=== PATIENT | male | born 2000 | race Caucasian/White ===

== ENCOUNTER 2020-04-27 21:17 | Emergency (ER) | payer OTHER, SELFPAY ==
--- NOTE | ~2020-04-27 | CT_ITS ---
EXAMINATION: CT brain wo con DATE: 04/27/2020 22:18 INDICATION: Unresponsive TECHNIQUE: Computed tomography (CT) of the head was performed without intravenous contrast. Sagittal and coronal reconstructions were performed. The mA was adjusted according to patient size. Iterative reconstruction technique was employed. The dose-length product was 605.33 mGy-cm. COMPARISON: None FINDINGS: 4.5 x 4.6 x 4.0 cm CSF attenuation cystic mass at the left middle cranial fossa and extending into th e suprasellar region. This exerts mass effect upon the adjacent brain. The left middle cerebral arter y however extends through the mass. No evident soft tissue component or calcifications. No acute intr acranial hemorrhage, acute infarction or abnormal extra axial fluid collection. Ventricles are normal and symmetric aside from the mild mass effect resulting from the cystic mass. Mild mucosal thickenin g in the bilateral ethmoid sinuses. Right mastoid effusion. IMPRESSION: 1. No acute intracranial process. 2. 4.6 cm cystic mass in the left middle cranial fossa extending to the suprasellar region most likel y an arachnoid cyst but would recommend further evaluation with pre and postcontrast MRI to exclude o ther cystic mass/neoplasm such as craniopharyngioma. Reviewed, dictated and finalized at location A. IMPRESSION: 1. No acute intracranial process. 2. 4.6 cm cystic mass in the left middle cranial fossa extending to the suprase llar region most likely an arachnoid cyst but would recommend further evaluatio n with pre and postcontrast MRI to exclude other cystic mass/neoplasm such as c raniopharyngioma.
[2020-04-27 21:17] VITALS: BP 138/63; PULSE 115; RESP 18; TEMP 37.8; O2SAT 98
--- NOTE | 2020-04-27 21:34 | ECG_ITS ---
Measurements Intervals [place] Rate: 119 P: 72 CO: 151 QRS: 57 QRSD: 87 T: 19 QT: 294 QTc: 414 Interpretive Statements SINUS TACHYCARDIA BORDERLINE ST-T WAVE ABNORMALITY- ANTEROLAT/INF LEADS ABNORMAL ECG Electronically Signed On 04-28-2020 7:03:05 CDT by Manuel Asencio D.O.
--- NOTE | 2020-04-27 21:38 | ED.GENADULT ---
HPI - General Adult General Chief complaint: Seizure Stated complaint: seizure like activity Time Seen by Provider: 04/27/20 21:23 Source: patient and family Limitations: no limitations History of Present Illness HPI narrative: Patient is 19 years old white male presented to the ED with possible seizure-like activity. Patient states he was at his girlfriend's house and took 2 hits of marijuana and starting having seizure-like activity.. Patient states this is not his first time smoking marijuana, patient was seen at a hospital in [place] about 5 days ago for syncopal episodes and was admitted for 1 day, had MRI of the brain, and was told that he had fluidlike sac in his brain but has nothing to do with his seizure-like activities. Was told he had probably had a since . And it was unrelated. Patient denies hitting his head or any pain. Currently patient is back to normal denying postictal confusion, also patient is telling me that he was able to hear everybody around him while laying down on the floor unable to move and unable to talk. Patient denies any fever, chills, nausea, vomiting, headache, shortness of breath, coughing, back pain. Patient came to the emergency room with his mom who did not witness the seizure.. Patient denies any tongue biting or urinary incontinence Related Data Allergies Allergy/AdvReac Type Severity Reaction Status Date / Time amoxicillin Allergy Unknown HIVES Verified 08/31/17 10:06 clavulanic acid Allergy Unknown HIVES Verified 08/31/17 10:06 peanut Allergy Unknown THROAT Verified 08/31/17 10:06 CLOSING Penicillins Allergy Unknown HIVES Verified 08/31/17 10:06 Review of Systems Review of Systems: Narrative: CONSTITUTIONAL: Denies fever, chills, or sweats. EYES: Denies visual changes, redness, or discharge. ENT: Denies rhinorrhea, congestion, sore throat, or otalgia. CARDIOVASCULAR: Denies chest pain, palpitations, or edema. RESPIRATORY: Denies cough or dyspnea. GASTROINTESTINAL: Denies abdominal pain, nausea, vomiting, or diarrhea. GENITOURINARY: Denies dysuria or hematuria. SKIN: Denies rash or itching. MUSCULOSKELETAL: Denies back pain, joint pain, or myalgia. NEUROLOGIC: Denies headache, numbness, or weakness. PSYCHIATRIC: Denies anxiety or depression. [facility] Past Medical History Medical History (Updated 10/24/20 @ 23:43 by Benny Gomez MD) Drug abuse Social History Social History (Updated 04/27/20 @ 21:43 by Benny Gomez MD) Social History: Patient using drugs, vape, does not drink alcohol Second hand tobacco smoke exposure: No Exam Narrative: Exam Narrative: General appearance: Well-developed, well-nourished Skin: Normal color Head: Normocephalic, nontraumatic Eyes: Clear conjunctiva ENT: Oropharynx normal, ears normal, nose normal Neck: Supple, nontender Chest and respiratory: Airway patent, no respiratory distress, no accessory muscle use Heart: Regular rate/rhythm Abdomen: Soft, nontender, no organomegaly, quiet bowel sounds Vascular: Normal peripheral pulses, normal capillary refill. Musculoskeletal: Normal range of motion, nontender back Neurologic: Alert and oriented ?3, [employer] is normal as tested, no gross motor deficit Course Course Emergency Course: Stable Reevaluation(s) Reevaluation #1: Currently patient feeling great, denying any symptoms and ready to go home. I discussed the CAT scan findings with patient's mother. Who told me that the same finding was discovered at [facility] patient was evaluated by a neurologist at [place], MRI of the brain showed the same findings and was told that cyst is benign and had nothing to do with his possible seizure-like activity.. I did te
[2020-04-27 22:06] LABS: Basophils Absolute Auto 0.1 K/mm3 (0.0-0.1); Basophils Percent Auto 0.8 % (0.2-1.2); Eosinophils Absolute Auto 0.6 K/mm3 (0-0.3); Eosinophils Percent Auto 8.5 % (0-4.4); Hematocrit 43.5 % (42.0-52.0); Hemoglobin 14.2 g/dL (14.0-18.0); Immature Granulocyte Absolute 0.03 K/mm3 (0.00-0.031); Immature Granulocyte Percent A 0.5 % (0-0.5); Lymphocytes Absolute Auto 1.68 K/mm3 (0.9-3.2); Lymphocytes Percent Auto 25.6 % (18.3-44.2); Mean Corpuscular HGB Conc 32.6 g/dl (32-36); Mean Corpuscular Hemoglobin 27.8 pg (26-34); Mean Corpuscular Volume 85.3 fl (80-100); Mean Platelet Volume 10.5 fl (7.4-10.4); Monocytes Absolute Auto 0.6 K/mm3 (0.1-0.6); Monocytes Percent Auto 8.4 % (2.6-8.5); Neutrophils Absolute Auto 3.7 K/mm3 (1.3-6.7); Neutrophils Percent Auto 56.2 % (45.5-73.1); Platelet Count Result 261 k/mm3 (150-375); Red Cell Distribution Width 11.9 % (11.5-14.5); White Blood Count 6.6 K/mm3 (4.5-10.0)
[2020-04-27 22:18] LABS: Alanine Aminotransferase 18 U/L (4-50); Albumin Level 4.8 g/dL (3.7-5.6); Alkaline Phosphatase 68 U/L (58-237); Anion Gap 11 mmol/L (8-16); Aspartate Amino Transferase 21 U/L (17-59); Bilirubin,Total 0.2 mg/dL (0.2-1.3); Blood Urea Nitrogen 16 mg/dL (8-21); Carbon Dioxide 28 mmol/L (22-30); Chloride 102 mmol/L (98-107); Estimated CRCL calculation 99 ml/min; Estimated Glomerular Filt Rate > 60; Glucose 126 mg/dL (75-110); Sodium 141 mmol/L (134-143)
[2020-04-27] MEDS: SODIUM CHLORIDE 0.9% IV 1,000 ML 999 ML IV CONT (22:31)
--- NOTE | 2020-04-27 22:34 | PC.NURSE ---
pt ambulated to restroom to give urine sample w/ no difficulty.
--- NOTE | 2020-04-27 22:45 | PC.NURSE ---
pt states he had a urine sample but accidently dropped it in the toilet. notified.
[2020-04-27 22:47] VITALS: BP 137/73; PULSE 96; RESP 18; O2SAT 100
[2020-04-27 23:35] LABS: Add Urine Microscopic? NO; Appearance Urine Clear (Clear); Bilirubin Urine Negative (Negative); Blood Urine Negative (Negative); Color Urine Straw (Yellow); Glucose Urine UA Negative (Negative); Ketones Urine Negative (Negative); Leukocyte Esterase Ur Negative LEU/UL (Negative); Nitrate Urine Negative (Negative); Protein Urine Negative (Negative); Specific Grav Ur 1.011 (1.001-1.035); Urobilinogen Urine Negative mg/dL (<2.0)
[2020-04-27 23:42] LABS: Ethanol < 10 mg/dL (<10)
[2020-04-27 23:52] LABS: Amphetamine Screen Urine Negative (Negative); Barbiturate Screen Urine Negative (Negative); Benzodiazepines Screen Urine Negative (Negative); Cannabinoid Screen Urine Negative (Negative); Cocaine Screen Urine Negative (Negative); Methadone Screen Urine Negative (Negative); Opiate Screen Urine Negative (Negative); Phencyclidine Screen Urine Negative (Negative)
== END 2020-04-28 00:32 | disposition home or self-care (01) ==
PROVIDERS: Emergency Provider Emergency Medicine
DX: R56.9 Unspecified convulsions (principal); F12.10 Cannabis abuse, uncomplicated; F17.290 Nicotine dependence, other tobacco product, uncomplicated
CPT/HCPCS: 36415; 70450; 80053; 80307; 81003; 83735; 85025; 93005; 96360; 99284; J7030